=== PATIENT | male | born 1980 | race Caucasian/White ===

== ENCOUNTER → 2018-05-07 | Outpatient (CLI) | payer OTHER ==
--- NOTE | 2018-05-07 15:50 | RADIOLOGY IMAGING REPORT ---
FACILITY: [facility] PATIENT NAME: Tay Szymanski : 1980 MR: [id number] V: [id number] EXAM DATE: ORDERING PHYSICIAN: ULYSSES MACKEY TECHNOLOGIST: Location: [facility] Patient: Tay Szymanski : 1980 Visit/Account:[id number] Date of Sevice: 05/07/2018 TESTICULAR HISTORY: Right testicular pain since Sunday no injury COMPARISON: July 13, 2015 FINDINGS: Testes: Right testicle measures 4.9 x 2.3 x 3.7 cm. Left testicle measures 4.8 x 2.2 x 3.6 cm Symme tric and unremarkable blood flow documented by color and Duplex Doppler ultrasound. Epididymides: Unremarkable. Blood flow is unremarkable in each epididymis by color Doppler ultrasoun d. Hydrocele: Tiny hydrocele on the right Varicocele: None. IMPRESSION: There is a tiny right hydrocele otherwise unremarkable scrotal ultrasound Report Dictated By: Mouna Campoverde MD at 05/07/2018 3:43 PM Report E-Signed By: Mouna Campoverde MD at 05/07/2018 3:45 PM WSN:[email or web address]
== END ==
LOC: US 00:43
PROVIDERS: ATTEND Family Medicine
DX: N43.3 Hydrocele, unspecified (principal)
CPT/HCPCS: 76870